=== PATIENT | female | born 1955 | race Native Hawaiian/Other Pacific Islander ===

== ENCOUNTER 2018-10-20 13:51 | Observation (INO) | payer OTHER ==
[~2018-10-20] VITALS: Ht 170.2 cm; Wt 80.8 kg
[2018-10-20 14:09] VITALS: BP 115/64; TEMP 97.9
[2018-10-20 14:36] LABS: PLATELET COUNT 220 K/uL (152-353)
[2018-10-20 14:44] LABS: POTASSIUM 3.6 mmol/L (3.6-5.2); SODIUM 143 mmol/L (136-145)
[2018-10-20 15:00] VITALS: BP 104/61
[2018-10-20 15:11] LABS: PARTIAL THROMBOPLASTIN TIME 26.3 SECONDS (24.5-33.6)
[2018-10-20 15:55] VITALS: BP 147/82; TEMP 98.9; Ht 170.2 cm; Wt 80.8 kg
[2018-10-20 16:00] VITALS: BP 147/82; TEMP 98.9
[2018-10-20] MEDS ORDERED: LEXAPRO20 MG PO (18:15)
[2018-10-20] MEDS ORDERED: GRALISE300 MG PO (18:17)
[2018-10-20] MEDS ORDERED: ATEN25TA21 PO (18:17)
[2018-10-20] MEDS ORDERED: FURO20TA67 PO (18:18)
[2018-10-20] MEDS ORDERED: METHADONE10 MG PO (18:20)
[2018-10-20 19:54] VITALS: BP 123/69; TEMP 98.1
[2018-10-21 00:22] VITALS: BP 125/67; TEMP 97.7
[2018-10-21 04:35] VITALS: BP 129/69; TEMP 98.2
[2018-10-21 08:00] VITALS: BP 129/72; TEMP 98.1
[2018-10-21 08:58] LABS: PLATELET COUNT 199 K/uL (152-353)
[2018-10-21 12:00] VITALS: BP 113/57; TEMP 98.6
== END 2018-10-21 14:20 | disposition home or self-care (01) ==
LOC: ED 13:51 → MED/SURG 15:15
PROVIDERS: Emergency Medicine; ADMIT Internal Medicine
DX: R41.82 Altered mental status, unspecified (principal); R47.81 Slurred speech; I10 Essential (primary) hypertension; Z86.73 Personal history of transient ischemic attack (TIA), and cerebral infarction without residual deficits; G89.4 Chronic pain syndrome; G47.419 Narcolepsy without cataplexy; F32.89 Other specified depressive episodes
CPT/HCPCS: 36415; 80048; 80053; 81000; 84484; 85027; 85610; 85730; 93005; 99220; 99283; G0378; J1650

== ENCOUNTER 2019-01-06 12:27 | Emergency (ER) | payer BC ==
[~2019-01-06] VITALS: Ht 170.2 cm; Wt 80.7 kg
[~2019-01-06 12:27] MED LIST: ATEN25TA21 PO; FURO20TA67 PO; GRALISE300 MG PO; LEXAPRO20 MG PO; METHADONE10 MG PO
[2019-01-06 12:55] VITALS: BP 183/90; TEMP 99.4
[2019-01-06 13:39] LABS: PLATELET COUNT 187 K/uL (152-353)
[2019-01-06 13:50] LABS: POTASSIUM 3.6 mmol/L (3.6-5.2)
== END 2019-01-06 15:20 | disposition home or self-care (01) ==
LOC: ED 12:27
PROVIDERS: Family Medicine
DX: G43.909 Migraine, unspecified, not intractable, without status migrainosus (principal); G44.89 Other headache syndrome
CPT/HCPCS: 80053; 85027; 93005; 96372; 99283; J1885; J3030

== ENCOUNTER 2019-01-23 14:39 | Emergency (ER) | payer BC ==
[~2019-01-23] VITALS: Ht 170.2 cm; Wt 81.6 kg
[2019-01-23 16:00] LABS: PLATELET COUNT 160 K/uL (152-353)
[2019-01-23 16:05] LABS: POTASSIUM 4.4 mmol/L (3.6-5.2)
[2019-01-23 20:20] VITALS: BP 179/83; TEMP 97.9
== END 2019-01-23 20:20 | disposition home or self-care (01) ==
LOC: ED 14:39
PROVIDERS: Emergency Medicine
DX: G43.909 Migraine, unspecified, not intractable, without status migrainosus (principal)
CPT/HCPCS: 80053; 81000; 83735; 85027; 87502; 87651; 96360; 96375; 99284; J1200; J1885; J2270; Q9963

== ENCOUNTER 2020-04-11 13:56 | Outpatient (CLI) | payer BC | END 2020-04-11 21:40 | disposition home or self-care (01) | LOC: RAD 13:56 | PROVIDERS: ATTEND Nurse Practitioner Family | DX: M25.552 Pain in left hip (principal) ==

== ENCOUNTER 2020-04-17 11:22 | Outpatient (CLI) | payer BC, OTHER | END 2020-04-17 23:58 | disposition home or self-care (01) | LOC: INF 11:22 | PROVIDERS: ATTEND Internal Medicine | DX: Z23 Encounter for immunization (principal) | CPT/HCPCS: 96372 ==

== ENCOUNTER 2020-05-22 15:49 | Outpatient (CLI) | payer BC, OTHER | END 2020-05-22 19:49 | disposition home or self-care (01) | LOC: INF 15:49 | PROVIDERS: ATTEND Internal Medicine | DX: Z23 Encounter for immunization (principal) | CPT/HCPCS: 96372 ==